=== PATIENT | female | born 1990 ===

== ENCOUNTER 2017-04-05 23:00 | Emergency (ER) | payer MEDICAID, OTHER, SELFPAY ==
[2017-04-05 23:17] VITALS: BP 130/75; PULSE 72; RESP 16; TEMP 98.2; O2SAT 98
--- NOTE | 2017-04-05 23:23 | ED PDOC ---
HPI: Back Time Seen by Provider: 04/05/17 23:21 Chief Complaint (Nursing): Back Pain Chief Complaint (Provider): low back pain History Per: Patient Additional Complaint(s): Patient has had low back pain for the past 3 days but today at work the pain worsened after she moved a heavy chair. Patient states that she took tylenol earlier but this did not help the pain. Patient denies radiation of pain and she denies any bowel or bladder dysfunction. Patient rates current pain as 7/ 10. Past Medical History Reviewed: Historical Data, Nursing Documentation, Vital Signs Vital Signs: Last Vital Signs Temp 98.2 F 04/05/17 23:14 Pulse 72 04/05/17 23:14 Resp 16 04/05/17 23:14 BP 130/75 04/05/17 23:14 Pulse Ox 98 04/05/17 23:14 - Medical History PMH: Anemia, Anxiety, Asthma Other PMH: PCOS - Surgical History Surgical History: Cholecystectomy, Tonsillectomy Other surgeries: gastric bypass - Family History Family History: States: No Known Family Hx - Living Arrangements Living Arrangements: With Family - Social History Current smoker - smoking cessation education provided: No Ex-Smoker (has not smoked in the last 12 months): Yes (quit a few months ago) Alcohol: Social Drugs: Denies - Home Medications Home Medications: Ambulatory Orders Medication Instructions Recorded Omeprazole 20 mg PO DAILY 05/15/16 Cyclobenzaprine [Cyclobenzaprine 10 mg PO TID PRN #20 tab 04/05/17 HCl] Naproxen [Naprosyn] 500 mg PO BID #20 tab 04/05/17 - Allergies Allergies/Adverse Reactions: Allergies Allergy/AdvReac Type Severity Reaction Status Date / Time heparin Allergy ANGIOEDEMA Verified 04/05/17 23:14 Review of Systems ROS Statement: Except As Marked, All Systems Reviewed And Found Negative Constitutional: Negative for: Fever, Chills Genitourinary Female: Negative for: Dysuria, Frequency, Incontinence, Hematuria Musculoskeletal: Positive for: Back Pain Physical Exam - Reviewed Nursing Documentation Reviewed: Yes Vital Signs Reviewed: Yes - Physical Exam Appears: Positive for: Well, Non-toxic, No Acute Distress Skin: Negative for: Rash Eye Exam: Positive for: Normal appearance Respiratory: Negative for: Respiratory Distress Back: Positive for: Vertebral Tenderness (lower lumbar region, negative bilateral straight leg raise), Muscle Spasm (lower lumbar region). Negative for : L CVA Tenderness, R CVA Tenderness Extremity: Positive for: Normal ROM Neurologic/Psych: Positive for: Alert, Oriented, Gait (steady) - Laboratory Results Urine POC: Negative - ECG O2 Sat by Pulse Oximetry: 98 Pulse Ox Interpretation: Normal Medical Decision Making Medical Decision Makin26 year old with low back pain Plan: test IM toradol PO flexeril Patient reports improvement of pain after meds administered in ED. Rx naprosyn and flexeril given. Patient was referred to clinic for follow up. Disposition - Clinical Impression Clinical Impression: Back strain - Patient ED Disposition Is Patient to be Admitted: No Counseled Patient/Family Regarding: Diagnosis, Need For Followup, Rx Given - Disposition Referrals: [facility] [Outside] Disposition: Routine/Home Disposition Time: 23:32 Condition: STABLE Additional Instructions: Rest and avoid heavy lifting. Take rx meds as directed as needed for pain. Follow up with clinic for further evaluation. Prescriptions: Cyclobenzaprine [Cyclobenzaprine HCl] 10 mg PO TID PRN #20 tab PRN Reason: Muscle Spasm Naproxen [Naprosyn] 500 mg PO BID #20 tab Instructions: Muscle Strain (ED), Back Pain (ED), Back Exercises (ED) Forms: [employer] (Hungarian), [facility] ED School/Work Excuse
== END 2017-04-06 00:04 | disposition home or self-care (01) ==
LOC: H.ER 23:00
DX: S39.012A Strain of muscle, fascia and tendon of lower back, initial encounter (principal); X50.9XXA Other and unspecified overexertion or strenuous movements or postures, initial encounter; Y99.0 Civilian activity done for income or pay; E28.2 Polycystic ovarian syndrome; F41.9 Anxiety disorder, unspecified; J45.909 Unspecified asthma, uncomplicated; Z87.891 Personal history of nicotine dependence
CPT/HCPCS: 96372; 99281; J1885

== ENCOUNTER 2017-06-05 23:11 | Emergency (ER) | payer SELFPAY ==
[2017-06-05 23:37] VITALS: BP 108/61; PULSE 82; RESP 17; TEMP 97.8; O2SAT 99
--- NOTE | 2017-06-05 23:42 | ED PDOC ---
HPI: Female Pain Time Seen by Provider: 06/05/17 23:21 Chief Complaint (Nursing): Female Genitourinary History Per: Patient History/Exam Limitations: no limitations Onset/Duration Of Symptoms: Days (2) Current Symptoms Are (Timing): Still Present Additional Complaint(s): 26 yo F presents with dysuria and urinary frequency x 2 days. Denies any fever, chills, N/V, back pain, abdominal pain, vaginal bleeding or d/c. Past Medical History Vital Signs: Last Vital Signs Temp 97.8 F 06/05/17 23:17 Pulse 82 06/05/17 23:17 Resp 17 06/05/17 23:17 BP 108/61 06/05/17 23:17 Pulse Ox 99 06/05/17 23:17 - Medical History PMH: Anemia, Anxiety, Asthma, Gall Bladder Disease - Surgical History Surgical History: Cholecystectomy, Tonsillectomy - Family History Family History: States: No Known Family Hx - Immunization History Hx Tetanus Toxoid Vaccination: No Hx Influenza Vaccination: No Hx Pneumococcal Vaccination: No - Home Medications Home Medications: Ambulatory Orders Medication Instructions Recorded Omeprazole 20 mg PO DAILY 05/15/16 Cyclobenzaprine [Cyclobenzaprine 10 mg PO TID PRN #20 tab 04/05/17 HCl] Naproxen [Naprosyn] 500 mg PO BID #20 tab 04/05/17 - Allergies Allergies/Adverse Reactions: Allergies Allergy/AdvReac Type Severity Reaction Status Date / Time heparin Allergy ANGIOEDEMA Verified 04/05/17 23:14 Review of Systems Constitutional: Positive for: Malaise. Negative for: Fever, Chills, Weakness Respiratory: Negative for: Cough, Shortness of Breath Gastrointestinal: Negative for: Nausea, Vomiting, Abdominal Pain Genitourinary Female: Positive for: Dysuria, Frequency. Negative for: Incontinence, Hematuria Skin: Negative for: Rash Physical Exam - Physical Exam Appears: Positive for: Well, Non-toxic, No Acute Distress Skin: Positive for: Normal Color, Warm, Dry Neck: Positive for: Normal, Supple Cardiovascular/Chest: Positive for: Regular Rate, Rhythm. Negative for: JVD, Murmur Respiratory: Positive for: Normal Breath Sounds. Negative for: Rales, Rhonchi, Wheezing Gastrointestinal/Abdominal: Positive for: Normal Exam, Soft, Tenderness. Negative for: Distended, Guarding, Rebound Back: Positive for: Normal Inspection. Negative for: L CVA Tenderness, R CVA Tenderness Extremity: Positive for: Normal ROM. 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 Negative for: Motor/Sensory Deficits - ECG O2 Sat by Pulse Oximetry: 99 Medical Decision Making Medical Decision Making: Plan : - POC Uhcg - UA - Urine cx Case endorsed to TRUONG Singletary at 0000 pending UA results and disposition. Disposition - Clinical Impression Clinical Impression: Dysuria - Patient ED Disposition Is Patient to be Admitted: Transfer of Care (Case endorsed to TRUONG Singletary pending UA and final disposition) - Disposition Disposition Time: 00:00 Condition: STABLE - PA / PHYSICIAN RELATIONS MANAGER / Resident Statement / has reviewed & agrees with the documentation as recorded.
[2017-06-06 00:09] LABS: SQUAMOUS EPITHIAL 11 /hpf (0-5); URINE BACTERIA RARE (<OCC); URINE BILIRUBIN NEGATIVE (NEGATIVE); URINE BLOOD NEGATIVE (NEGATIVE); URINE CLARITY CLOUDY (Clear); URINE COLOR YELLOW (YELLOW); URINE GLUCOSE (UA) NEG (Normal); URINE LEUKOCYTE ESTERASE SMALL Leu/uL (Negative); URINE NITRATE NEGATIVE (NEGATIVE); URINE PROTEIN NEGATIVE (NEGATIVE); URINE UROBILINOGEN 0.2-1.0 mg/dL (0.2-1.0)
--- NOTE | 2017-06-06 00:31 | ED PDOC ---
- ECG O2 Sat by Pulse Oximetry: 99 Pulse Ox Interpretation: Normal Medical Decision Making Medical Decision Making: Case was signed out to chief writer from TRUONG Fischer pending UA. Patient has UTI. Initial dose of Macrobid given in ED along with rx for same. Patient was advised to follow up with primary doctor in 2-3 days. Disposition - Clinical Impression Clinical Impression: Dysuria, Urinary tract infection - POA Present On Arrival: None - Disposition Referrals: [facility] [Outside] Disposition: Routine/Home Disposition Time: 00:32 Condition: STABLE Additional Instructions: Take antibiotics as directed. Drink fluids and take [id number] Tylenol or Motrin for pain as needed. Follow-up with clinic or primary doctor in 2-3 days. Prescriptions: Nitrofurantoin Macrocrystals [Macrobid] 100 mg PO BID #14 tab Instructions: Urinary Tract Infections in Adults Forms: [employer] [facility] (Greenlandic), [facility] ED School/Work Excuse
== END 2017-06-06 00:40 | disposition home or self-care (01) ==
LOC: H.ER 23:11
DX: N39.0 Urinary tract infection, site not specified (principal); F41.9 Anxiety disorder, unspecified; J45.909 Unspecified asthma, uncomplicated

== ENCOUNTER 2017-09-22 23:00 | Emergency (ER) | payer SELFPAY ==
[2017-09-23 00:41] VITALS: TEMP 96.7
--- NOTE | 2017-09-23 01:03 | ED PDOC ---
HPI: Female Pain Time Seen by Provider: 09/23/17 00:25 Chief Complaint (Nursing): Female Genitourinary Chief Complaint (Provider): Female Genitourinary History Per: Patient History/Exam Limitations: no limitations Onset/Duration Of Symptoms: Days (x2) Current Symptoms Are (Timing): Still Present Additional Complaint(s): 26 year old female presents to the emergency department complaining of lower back pain associated with dysuria, frequency, and urgency onset two days ago. Patient notes she also feels febrile, but denies incontinence, trauma, numbness , tingling, and hematuria. She states that at 15:00 today, she took Tylenol with minimal relief. PMD: none provided Past Medical History Reviewed: Historical Data, Nursing Documentation, Vital Signs Vital Signs: Last Vital Signs Temp 96.7 F L 09/23/17 00:40 Pulse 90 09/23/17 00:40 Resp 19 09/23/17 00:40 BP 128/84 09/23/17 00:40 Pulse Ox 98 09/23/17 00:40 - Medical History PMH: Anemia, Anxiety, Asthma, Gall Bladder Disease - Surgical History Surgical History: Cholecystectomy, Tonsillectomy - Family History Family History: States: Unknown Family Hx - Social History Ex-Smoker (has not smoked in the last 12 months): Yes Alcohol: Social Drugs: Cannabis - Immunization History Hx Tetanus Toxoid Vaccination: No Hx Influenza Vaccination: No Hx Pneumococcal Vaccination: No - Home Medications Home Medications: Ambulatory Orders Medication Instructions Recorded Omeprazole 20 mg PO DAILY 05/15/16 Cyclobenzaprine [Cyclobenzaprine 10 mg PO TID PRN #20 tab 04/05/17 HCl] Naproxen [Naprosyn] 500 mg PO BID #20 tab 04/05/17 Nitrofurantoin Macrocrystals 100 mg PO BID #14 tab 06/06/17 [Macrobid] Meloxicam [Mobic] 7.5 mg PO DAILY PRN #10 tab 09/23/17 Methocarbamol [Robaxin] 500 mg PO TID PRN #15 tablet 09/23/17 - Allergies Allergies/Adverse Reactions: Allergies Allergy/AdvReac Type Severity Reaction Status Date / Time heparin Allergy ANGIOEDEMA Verified 04/05/17 23:14 Review of Systems ROS Statement: Except As Marked, All Systems Reviewed And Found Negative Constitutional: Positive for: Fever Genitourinary Female: Positive for: Dysuria, Frequency (and urgency). Negative for: Incontinence, Hematuria Musculoskeletal: Positive for: Back Pain (lower) Neurological: Negative for: Numbness (or tingling) Physical Exam - Reviewed Nursing Documentation Reviewed: Yes Vital Signs Reviewed: Yes - Physical Exam Appears: Positive for: No Acute Distress Head Exam: Positive for: ATRAUMATIC, NORMOCEPHALIC Skin: Positive for: Normal Color, Warm, Dry Eye Exam: Positive for: Normal appearance Cardiovascular/Chest: Positive for: Regular Rate, Rhythm. Negative for: Murmur Respiratory: Positive for: Normal Breath Sounds. Negative for: Accessory Muscle Use, Respiratory Distress Gastrointestinal/Abdominal: Positive for: Normal Exam, Soft. Negative for: Tenderness Back: Positive for: Normal Inspection. Negative for: L CVA Tenderness, R CVA Tenderness Neurologic/Psych: Positive for: Alert, Oriented (x3) - Laboratory Results Result Diagrams: 09/23/17 02:19 09/23/17 02:19 Urine POC: Negative Urine dip results: Positive for: Blood (small). Negative for: Leukocyte Esterase, Nitrate, Ketones, Glucose, Bilirubin, Protein - ECG O2 Sat by Pulse Oximetry: 98 (RA) Pulse Ox Interpretation: Normal Medical Decision Making Medical Decision Making: Initial Impression: dysuria Time: 00:42 Initial Plan: --CMP --ED urine --ED urne dipstick --Urine Culture --CBC with differential --Toradol 30mg IVP --CT Abd/ Pelvis w/o contrast 3:32 CT Abd/ Pelvis FINDINGS: Limitations: Lack of intravenous contrast. Motion artifact - mild to moderate. Lung bases: No acute findings. ABDOMEN: Liver: Unremarkable. Gallbladder and bile ducts: Cholecystectomy. No significant ductal dilation. Pancreas: Unremarkable. No ductal dilation. Spleen: No splenomegaly. Adrenals: No mass. Kidneys and ureters: Mild malrotation of right kidney. No renal calculi. No hydronephrosis. Stomach and bowel: Postsurgical changes of stomach. Postsurgical changes of small bowel. No definite mural thickening. No obstruction. PELVIS: Appendix: Normal caliber. No definite inflammation. Bladder: Unremarkable. No stones. Reproductive: Unremarkable as visualized. ABDOMEN and PELVIS: Intraperitoneal space: Trace free fluid within pelvis. No free air. Bones/joints: No acute fracture. Soft tissues: Unremarkable. Vasculature: Unremarkable. No aneurysm. Lymph nodes: No pathologically enlarged lymph nodes. IMPRESSION: 1. No definite CT evidence of urolithiasis. 2. Incidental/non-acute findings are described above. Pt. informed of results. Advised to f/u with urologist (Dr. Wolfe) for further evaluation. Scribe Attestation: Documented by Lilliam Burroughs, acting as a scribe for Juan Alberto Bass PA-C. Provider Scribe Attestation: All medical entries made by the Scribe were at my direction and personally dictated by me. I have reviewed the chart and agree that the record accurately reflects my personal performance of the history, physical exam, medical decision making, and the department course for this patient. I have also personally directed, reviewed, and agree with the discharge instructions and disposition. Disposition - Clinical Impression Clinical Impression: Low back pain, Hematuria - Patient ED Disposition Is Patient to be Admitted: No - Disposition Referrals: [facility] [Outside] Alan Wolfe MD [Medical Doctor] - Disposition: Routine/Home Disposition Time: 03:40 Condition: IMPROVED Additional Instructions: Follow up with PMD for further evaluation. Return to ED immediately if symptoms worsen. Prescriptions: Meloxicam [Mobic] 7.5 mg PO DAILY PRN #10 tab PRN Reason: Pain, Mild (1-3) Methocarbamol [Robaxin] 500 mg PO TID PRN #15 tablet PRN Reason: Muscle Spasm Instructions: Low Back Pain (DC), Blood in the Urine (Hematuria), Adult (DC) Forms: [employer] (Sinhala) Print Language: CUBAN
[2017-09-23 02:36] LABS: SQUAMOUS EPITHIAL 8 /hpf (0-5); URINE BILIRUBIN NEGATIVE (NEGATIVE); URINE BLOOD NEGATIVE (NEGATIVE); URINE CLARITY CLOUDY (Clear); URINE COLOR YELLOW (YELLOW); URINE GLUCOSE (UA) NEG (Normal); URINE HYALINE CAST 0-2 /hpf (0-2); URINE LEUKOCYTE ESTERASE SMALL Leu/uL (Negative); URINE PROTEIN 100 mg/dL (NEGATIVE); URINE UROBILINOGEN 0.2-1.0 mg/dL (0.2-1.0)
[2017-09-23 02:55] LABS: BASO % 0.7 % (0.0-2.0); EOS # 0.1 K/uL (0.0-0.7); EOS % 1.3 % (0.0-4.0); HEMOGLOBIN 9.8 g/dL (12.0-16.0); LYMPH % 46.8 % (20.0-40.0); MEAN CELL VOLUME 80.8 fl (81.0-99.0); MEAN CORPUSCULAR HEMOGLOBIN 25.7 pg (27.0-31.0); MEAN CORPUSCULAR HGB CONC 31.9 g/dL (33.0-37.0); MEAN PLATELET VOLUME 8.3 fl (7.2-11.7); MONO # 0.6 K/uL (0.0-0.8); MONO % 9.5 % (0.0-10.0); NEUT # 2.7 K/uL (1.8-7.0); NEUT % 41.7 % (50.0-75.0); RBC 3.8 Mil/uL (3.80-5.20); RED CELL DISTRIBUTION WIDTH 16.3 % (11.5-14.5); WHITE BLOOD COUNT 6.4 K/uL (4.8-10.8)
[2017-09-23 03:07] LABS: ALB/GLOB RATIO 1.1 (1.0-2.1); ALBUMIN 3.9 g/dL (3.5-5.0); ALT/SGPT 33 U/L (9-52); AST/SGOT 34 U/L (14-36); BLOOD UREA NITROGEN 12 mg/dl (7-17); CALCIUM 8.7 mg/dL (8.4-10.2); GFR AFRICAN-AMERICAN > 60; GFR NON-AFRICAN AMERICAN > 60
--- NOTE | 2017-09-23 03:33 | CT ---
EXAM: CT Abdomen and Pelvis Without Intravenous Contrast CLINICAL HISTORY: 26 years old, female; Pain; Abdominal pain; Prior surgery; Surgery date: 6+ months; Surgery type: Gastric bypass. 6 years ago; Additional info: Back pain, hematuria TECHNIQUE: Axial computed tomography images of the abdomen and pelvis without intravenous contrast. All CT scans at this facility use one or more dose reduction techniques, viz.: automated exposure control; ma/kV adjustment per patient size (including targeted exams where dose is matched to indication; i.e. head); or iterative reconstruction technique. Coronal and sagittal reformatted images were created and reviewed. COMPARISON: No relevant prior studies available. FINDINGS: Limitations: Lack of intravenous contrast. Motion artifact - mild to moderate. Lung bases: No acute findings. ABDOMEN: Liver: Unremarkable. Gallbladder and bile ducts: Cholecystectomy. No significant ductal dilation. Pancreas: Unremarkable. No ductal dilation. Spleen: No splenomegaly. Adrenals: No mass. Kidneys and ureters: Mild malrotation of right kidney. No renal calculi. No hydronephrosis. Stomach and bowel: Postsurgical changes of stomach. Postsurgical changes of small bowel. No definite mural thickening. No obstruction. PELVIS: Appendix: Normal caliber. No definite inflammation. Bladder: Unremarkable. No stones. Reproductive: Unremarkable as visualized. ABDOMEN and PELVIS: Intraperitoneal space: Trace free fluid within pelvis. No free air. Bones/joints: No acute fracture. Soft tissues: Unremarkable. Vasculature: Unremarkable. No aneurysm. Lymph nodes: No pathologically enlarged lymph nodes. IMPRESSION: 1. No definite CT evidence of urolithiasis. 2. Incidental/non-acute findings are described above.
[2017-09-23 04:17] VITALS: BP 116/54; PULSE 54; RESP 12
[2017-09-23 06:18] VITALS: O2SAT 98
== END 2017-09-23 04:19 | disposition home or self-care (01) ==
LOC: H.ER 23:00
DX: M54.5 Low back pain (principal); R31.9 Hematuria, unspecified; F41.9 Anxiety disorder, unspecified
CPT/HCPCS: 74176; 80053; 81003; 81025; 85025; 87086; 96374; 99284; J1885

== ENCOUNTER 2017-11-01 17:23 | Emergency (ER) | payer OTHER ==
[2017-11-01 17:31] VITALS: TEMP 98.2
[2017-11-01] MEDS ORDERED: Albuterol 0.083% Inhal Sol (2.5 mg/3 mL) UD INH STA (19:12)
[2017-11-01] MEDS ORDERED: Albuterol 0.083% Inhal Sol (2.5 mg/3 mL) UD ONE (20:23)
[2017-11-01 20:25] LABS: BASO # 0.1 K/uL (0.0-0.2); BASO % 1.3 % (0.0-2.0); EOS # 0.1 K/uL (0.0-0.7); EOS % 1.1 % (0.0-4.0); HEMOGLOBIN 10.3 g/dL (12.0-16.0); LYMPH # 2.8 K/uL (1.0-4.3); LYMPH % 41.1 % (20.0-40.0); MEAN CELL VOLUME 81.6 fl (81.0-99.0); MEAN CORPUSCULAR HEMOGLOBIN 25.9 pg (27.0-31.0); MEAN CORPUSCULAR HGB CONC 31.8 g/dL (33.0-37.0); MEAN PLATELET VOLUME 8.4 fl (7.2-11.7); MONO # 0.7 K/uL (0.0-0.8); MONO % 10.4 % (0.0-10.0); NEUT # 3.2 K/uL (1.8-7.0); NEUT % 46.1 % (50.0-75.0); NRBC % 0.1 % (0.0-0.0); RBC 3.96 Mil/uL (3.80-5.20); RED CELL DISTRIBUTION WIDTH 18.8 % (11.5-14.5); WHITE BLOOD COUNT 6.9 K/uL (4.8-10.8)
[2017-11-01 20:34] LABS: ALB/GLOB RATIO 1.1 (1.0-2.1); ALT/SGPT 31 U/L (9-52); AST/SGOT 42 U/L (14-36); BLOOD UREA NITROGEN 11 mg/dl (7-17); CALCIUM 8.8 mg/dL (8.4-10.2); GFR AFRICAN-AMERICAN > 60; GFR NON-AFRICAN AMERICAN > 60
--- NOTE | 2017-11-01 20:35 | ED PDOC ---
HPI: Chest Pain Time Seen by Provider: 11/01/17 19:03 Chief Complaint (Nursing): Chest Pain Chief Complaint (Provider): Chest Pain History Per: Patient History/Exam Limitations: no limitations Onset/Duration Of Symptoms: Days (x1) Current Symptoms Are (Timing): Still Present Additional Complaint(s): 27 year old female arrives to ED for an evaluation of mid-sternal chest tightness associated with shortness of breath since last night. Patient states that she has been feeling anxious after arguing with her father earlier in the week, which has been causing her stress. Because of her SOB, patient expresses concern for DVT due to her family history of DVTs. Otherwise: (-) fever, (-) chills, (-) cough, (-) prolong immobility, (-) radiation of pain, (-) nausea, (- ) vomiting, (-) diarrhea, (-) abdominal pain, (-) dysuria, (-) hematuria, or (- ) flank pain. LMP: 10/13/17. PMD: none provided Past Medical History Reviewed: Historical Data, Nursing Documentation, Vital Signs Vital Signs: Last Vital Signs Temp 98.2 F 11/01/17 17:29 Pulse 87 11/02/17 06:19 Resp 18 11/02/17 06:19 BP 140/83 11/02/17 06:19 Pulse Ox 100 11/06/17 00:51 - Medical History PMH: Anemia, Anxiety, Asthma, Gall Bladder Disease Other PMH: PCOS - Surgical History Surgical History: Cholecystectomy, Tonsillectomy Other surgeries: gastric bypass - Family History Family History: States: Other Other Family History: DVT - Home Medications Home Medications: Ambulatory Orders Medication Instructions Recorded Omeprazole 20 mg PO DAILY 05/15/16 Cyclobenzaprine [Cyclobenzaprine 10 mg PO TID PRN #20 tab 04/05/17 HCl] Naproxen [Naprosyn] 500 mg PO BID #20 tab 04/05/17 Nitrofurantoin Macrocrystals 100 mg PO BID #14 tab 06/06/17 [Macrobid] Meloxicam [Mobic] 7.5 mg PO DAILY PRN #10 tab 09/23/17 Methocarbamol [Robaxin] 500 mg PO TID PRN #15 tablet 09/23/17 - Allergies Allergies/Adverse Reactions: Allergies Allergy/AdvReac Type Severity Reaction Status Date / Time heparin Allergy ANGIOEDEMA Verified 11/01/17 17:29 Review of Systems ROS Statement: Except As Marked, All Systems Reviewed And Found Negative Constitutional: Negative for: Fever, Chills Cardiovascular: Positive for: Chest Pain (mid-sternal tightness) Respiratory: Positive for: Shortness of Breath. Negative for: Cough Gastrointestinal: Negative for: Nausea, Vomiting, Abdominal Pain, Diarrhea Genitourinary Female: Negative for: Dysuria Psych: Positive for: Anxiety Physical Exam - Reviewed Nursing Documentation Reviewed: Yes Vital Signs Reviewed: Yes - Physical Exam Comments: GENERAL APPEARANCE: Patient is awake, alert, oriented x 3, in no acute distress. Resting comfortably. SKIN: Warm, dry; (-) cyanosis. EYES: (-) conjunctival pallor. ENMT: Mucous membranes moist. NECK: Supple, FROM (-) tenderness, (-) stiffness, (-) lymphadenopathy CHEST AND RESPIRATORY: (-) rash, (-) chest wall tenderness. Lungs: (-) rales , (-) rhonchi, (-) wheezes, (-) rub; breath sounds equal bilaterally. Speaking in full sentences, respirations even and nonlabored. HEART AND CARDIOVASCULAR: (-) irregularity; (-) murmur ABDOMEN AND GI: Soft; (-) distention, (-) tenderness, (-) guarding EXTREMITIES: (-) deformity; (-) edema, (-) erythema, (-) warmth, (-) calf tenderness. (+) distal pulses. NEURO AND PSYCH: Mental status as above. Cranial nerves grossly intact; strength symmetric. Gait steady, speech clear. (-) facial asymmetry (-) focal deficit. - Laboratory Results Result Diagrams: 11/01/17 20:19 11/01/17 20:19 - ECG O2 Sat by Pulse Oximetry: 100 (RA) Pulse Ox Interpretation: Normal Medical Decision Making Medical Decision Making: Initial Impression: Chest pain and shortness of breath, likely secondary to anxiety Initial Plan: * CMP * Drug screen, urine * Troponin I * CBC * D Dimer * PTT * PT * CXR * Albuterol 2.5mg INH * Toradol 30mg IVP * Xanax 0.25mg PO 1999 Case endorsed to Juan Chan pending lab results, re-evaluation, and further disposition. Scribe Attestation: Documented by Peri Armstrong, acting as a scribe for Bessy Coyne PA-C. Provider Scribe Attestation: All medical record entries made by the Scribe were at my direction and personally dictated by me. I have reviewed the chart and agree that the record accurately reflects my personal performance of the history, physical exam, medical decision making, and the department course for this patient. I have also personally directed, reviewed, and agree with the discharge instructions and disposition. Disposition - Clinical Impression Clinical Impression: Chest pain - Patient ED Disposition Is Patient to be Admitted: Transfer of Care (Juan Chan PA-C pending re- evaluation and further disposition) - Disposition Disposition: Transfer of Care (Juan Chan PA-C pending re-evaluation and further disposition) Disposition Time: 20:00 Condition: STABLE - POA Present On Arrival: None
[2017-11-01 20:40] LABS: PARTIAL THROMBOPLASTIN TIME 26.1 Seconds (25.6-37.1); PROTHROMBIN TIME 10.6 Seconds (9.8-13.1)
[2017-11-01 20:44] LABS: BARBITURATES, UR NEGATIVE (NEGATIVE); BENZODIAZEPINES, UR NEGATIVE (NEGATIVE); OPIATES, UR NEGATIVE (NEGATIVE); PHENCYCLIDINE, UR NEGATIVE (NEGATIVE)
--- NOTE | 2017-11-01 22:11 | ED PDOC ---
- Laboratory Results Result Diagrams: 11/01/17 20:19 11/01/17 20:19 - ECG O2 Sat by Pulse Oximetry: 100 - Radiology X-Ray: Viewed By Me X-Ray Interpretation: No Acute Disease - Progress ED Course And Treament: Case endorsed to hand sign writer from [facility] MUÑOZ pending labs, chest xray On re-eval, patient states she is feeling better. Patient educated on findings, discharged with instructions to follow up PMD 2-3 days Return precautions given Disposition - Clinical Impression Clinical Impression: Chest pain - POA Present On Arrival: None - Disposition Disposition: Routine/Home Disposition Time: 22:16 Condition: IMPROVED Instructions: Chest Pain
[2017-11-02 06:20] VITALS: BP 140/83; PULSE 87; RESP 18
--- NOTE | 2017-11-02 10:58 | RAD ---
Date of service: 11/01/2017 HISTORY: SOB, CHEST PAIN COMPARISON: No prior. TECHNIQUE: Chest PA and lateral FINDINGS: LUNGS: No active pulmonary disease. PLEURA: No significant pleural effusion identified. No pneumothorax apparent. CARDIOVASCULAR: Normal. OSSEOUS STRUCTURES: No significant abnormalities. VISUALIZED UPPER ABDOMEN: Normal. OTHER FINDINGS: Bilateral apparent nipple rings in situ. IMPRESSION: No acute cardiopulmonary disease appreciated.
[2017-11-06 00:43] VITALS: O2SAT 100
== END 2017-11-01 22:20 | disposition home or self-care (01) ==
LOC: H.ER 17:23
DX: R07.89 Other chest pain (principal); E28.2 Polycystic ovarian syndrome
CPT/HCPCS: 71046; 80053; 80324; 80345; 80346; 80349; 80353; 80358; 80361; 81025; 83992; 84484; 85025; 85378; 85610; 85730; 99283; J1885

== ENCOUNTER 2017-12-08 21:33 | Emergency (ER) | payer OTHER ==
[2017-12-08 21:51] VITALS: BP 115/71; PULSE 62; RESP 14; TEMP 98.3; O2SAT 97
--- NOTE | 2017-12-08 23:56 | ED PDOC ---
Lower Extremity Pain/Injury Time Seen by Provider: 12/08/17 22:10 Chief Complaint (Nursing): Lower Extremity Problem/Injury Chief Complaint (Provider): right heel pain x 2 weeks History Per: Patient History/Exam Limitations: no limitations Onset/Duration Of Symptoms: Days Additional Complaint(s): 27 yo female with history of gastric bypass presents for evaluation of right heel pain. PT states she had a fracture in similar location a few years ago but does not remember which bone. Pt states she has been having worsening pain the last few weeks. Pt states the pain has been even worse since twisint ankle 2 days ago. PT states tylenol is not working and she cannot take motrin/advil due to bypass. Past Medical History Reviewed: Historical Data, Nursing Documentation, Vital Signs Vital Signs: Last Vital Signs Temp 98.3 F 12/08/17 21:49 Pulse 62 12/08/17 21:49 Resp 14 12/08/17 21:49 BP 115/71 12/08/17 21:49 Pulse Ox 97 12/08/17 21:49 - Medical History PMH: Anemia, Anxiety, Asthma, Gall Bladder Disease - Surgical History Surgical History: Cholecystectomy, Tonsillectomy - Family History Family History: States: Unknown Family Hx - Immunization History Hx Tetanus Toxoid Vaccination: No Hx Influenza Vaccination: No Hx Pneumococcal Vaccination: No - Home Medications Home Medications: Ambulatory Orders Medication Instructions Recorded Omeprazole 20 mg PO DAILY 05/15/16 Cyclobenzaprine [Cyclobenzaprine 10 mg PO TID PRN #20 tab 04/05/17 HCl] Naproxen [Naprosyn] 500 mg PO BID #20 tab 04/05/17 Nitrofurantoin Macrocrystals 100 mg PO BID #14 tab 06/06/17 [Macrobid] Meloxicam [Mobic] 7.5 mg PO DAILY PRN #10 tab 09/23/17 Methocarbamol [Robaxin] 500 mg PO TID PRN #15 tablet 09/23/17 traMADol [Ultram] 50 mg PO Q6H PRN #15 tab 12/08/17 - Allergies Allergies/Adverse Reactions: Allergies Allergy/AdvReac Type Severity Reaction Status Date / Time heparin Allergy ANGIOEDEMA Verified 12/08/17 21:48 Review of Systems ROS Statement: Except As Marked, All Systems Reviewed And Found Negative Constitutional: Negative for: Fever, Chills Musculoskeletal: Positive for: Foot Pain Physical Exam - Reviewed Nursing Documentation Reviewed: Yes Vital Signs Reviewed: Yes - Physical Exam Appears: Positive for: Well, Non-toxic, No Acute Distress Head Exam: Positive for: ATRAUMATIC, NORMAL INSPECTION, NORMOCEPHALIC Skin: Positive for: Warm. Negative for: Normal Color Eye Exam: Positive for: Normal appearance ENT: Positive for: Normal ENT Inspection Neck: Positive for: Normal Respiratory: Negative for: Accessory Muscle Use, Respiratory Distress Back: Positive for: Normal Inspection Extremity: Positive for: Normal ROM, Tenderness (Heel ) Neurologic/Psych: Positive for: Alert, Oriented - ECG O2 Sat by Pulse Oximetry: 97 Medical Decision Making Medical Decision Making: XR without acute fracture or dislocation Disposition - Clinical Impression Clinical Impression: Heel pain - Patient ED Disposition Is Patient to be Admitted: No Counseled Patient/Family Regarding: Diagnosis, Need For Followup, Rx Given - Disposition Referrals: Pramod Tolbert MD [Staff Provider] - Disposition: Routine/Home Disposition Time: 23:55 Condition: STABLE Prescriptions: traMADol [Ultram] 50 mg PO Q6H PRN #15 tab PRN Reason: Pain Instructions: Heel Pain (Caused by Plantar Fasciitis) Forms: [employer] [facility] (Ecuadorean)
--- NOTE | 2017-12-09 15:31 | RAD ---
Date of service: 12/08/2017 PROCEDURE: Right Foot Radiographs. HISTORY: foot pain, right heel COMPARISON: None. FINDINGS: BONES: Fracture nor dislocation. No acute displaced fracture nor dislocation. .Tiny posterior calcaneal enthesophyte JOINTS: Normal. SOFT TISSUES: Normal. OTHER FINDINGS: None. IMPRESSION: No acute displaced s. Tiny posterior calcaneal enthesophyte.
== END 2017-12-09 00:29 | disposition home or self-care (01) ==
LOC: H.ER 21:33
DX: M79.671 Pain in right foot (principal); F41.9 Anxiety disorder, unspecified

== ENCOUNTER 2018-03-16 04:14 | Emergency (ER) | payer SELFPAY ==
[2018-03-16 04:20] VITALS: TEMP 98.6; O2SAT 99
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
[2018-03-16 06:20] VITALS: BP 123/60; PULSE 84; RESP 18
== END 2018-03-16 06:40 | disposition home or self-care (01) ==
LOC: H.ER 04:14
DX: F10.129 Alcohol abuse with intoxication, unspecified (principal)

== ENCOUNTER 2018-05-03 11:12 | Emergency (ER) | payer SELFPAY ==
[2018-05-03 11:25] VITALS: BP 129/75; PULSE 78; RESP 16; TEMP 97; O2SAT 99
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
[2018-05-03 13:33] LABS: BASO # 0.1 K/uL (0.0-0.2); BASO % 1.1 % (0.0-2.0); EOS % 0.9 % (0.0-4.0); HEMOGLOBIN 9.5 g/dL (12.0-16.0); LYMPH # 1.8 K/uL (1.0-4.3); LYMPH % 33.8 % (20.0-40.0); MEAN CELL VOLUME 80.5 fl (81.0-99.0); MEAN CORPUSCULAR HEMOGLOBIN 25.3 pg (27.0-31.0); MEAN CORPUSCULAR HGB CONC 31.4 g/dL (33.0-37.0); MEAN PLATELET VOLUME 8.4 fl (7.2-11.7); MONO # 0.6 K/uL (0.0-0.8); MONO % 10.6 % (0.0-10.0); NEUT # 2.9 K/uL (1.8-7.0); NEUT % 53.6 % (50.0-75.0); RBC 3.77 Mil/uL (3.80-5.20); RED CELL DISTRIBUTION WIDTH 18.6 % (11.5-14.5); WHITE BLOOD COUNT 5.4 K/uL (4.8-10.8)
--- NOTE | 2018-05-03 14:16 | US ---
Date of service: 05/03/2018 HISTORY: RLQ pain, vaginal bleeding x 3 weeks. LMP 04/17/2017 COMPARISON: None available. TECHNIQUE: Grayscale and color Doppler sonographic images were obtained of the pelvis utilizing transabdominal approach. FINDINGS: UTERUS: Anteverted and normal in sizemeasuring 7.8 x 3 x 3.7 cm. ENDOMETRIUM: Normal in caliber endometrial stripe measures 0.5 cm. CERVIX: No definite cervical abnormality identified. RIGHT OVARY: Measures 3 x 1.4 x 2.6 cm. Sonographically unremarkable. Normal arterial flow demonstrated. LEFT OVARY: Measures 3.8 x 2 x 2.9 cm. Sonographically unremarkable Normal arterial flow was demonstrated. FREE FLUID: No significant free fluid noted. OTHER FINDINGS: None. IMPRESSION: Unremarkable transabdominal pelvic ultrasound.
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
== END 2018-05-03 15:18 | disposition home or self-care (01) ==
LOC: H.ER 11:12
DX: N93.8 Other specified abnormal uterine and vaginal bleeding (principal); S99.929A Unspecified injury of unspecified foot, initial encounter; V49.9XXA Car occupant (driver) (passenger) injured in unspecified traffic accident, initial encounter; I10 Essential (primary) hypertension; J45.909 Unspecified asthma, uncomplicated; Z98.84 Bariatric surgery status